=== PATIENT | female | born 1995 | race Caucasian/White ===

== ENCOUNTER 2021-09-09 11:51 | Emergency (ER) | payer MEDICAID, SELFPAY ==
[2021-09-09 12:06] VITALS: BP 113/78; PULSE 71; RESP 16; TEMP 36.8; O2SAT 96; BMI 28.3
--- NOTE | 2021-09-09 12:30 | ED_ITS ---
HPI - General Adult General: Chief complaint: General Medical Stated complaint: Sore throat, hard to swollow, cough Time Seen by Provider: 09/09/21 12:07 History of Present Illness: Patient presents with cough itchy throat and nasal drainage intermittently. Patient denies any fever. Patient denies any shortness of breath. It hurts to swallow but is not hard to swallow at times. Unable to get primary care due to not having [place] Medicaid insurance. Patient states she feels fine right now. Associated symptoms: Deny chest pain, dyspnea, headache(s), nausea, rash or vomiting Review of Systems 2 Const: Denies: fever(s), chills or body aches Eyes: Denies: eye discomfort ENMT: Reports: throat pain (Occasionally) and nasal discharge Card: Denies: chest pain Resp: Reports: non-productive cough; Denies: dyspnea GI: Denies: abdominal pain, nausea or vomiting Skin/Breast: Denies: rash Neuro: Denies: headache(s) Psych: Denies: depression or suicidal ideation Physical Exam Const: COMMON NORMALS: no acute distress, patient oriented x3 and alert HENMT: COMMON NORMALS: normocephalic, external ears normal and TM's normal bilaterally HEAD & SCALP: normocephalic EXTERNAL EAR: Yes external ears normal TYMPANIC MEMBRANE: TM's normal bilaterally THROAT: posterior oropha rynx normal and postnasal drainage; no peritonsillar mass and uvula not laterally displaced Eye: COMMON NORMALS: EOMs intact bilaterally Neck/C-Spine: COMMON NORMALS: no JVD Lymph: LYMPHATIC: no lymphadenopathy noted Resp: COMMON NORMALS: normal respiratory effort, No use of accessory muscles and clear to auscultation bilaterally AUSCULTATION: clear to auscultation bilaterally Cardio: COMMON NORMALS: no JVD GI: INSPECTION: Yes normal to inspection Extremity: COMMON NORMALS: normal to inspection and full ROM Neuro: COMMON NORMALS: patient oriented x3 SENSORIUM/ORIENTATION: Yes alert Psych: COMMON NORMALS: mental status grossly normal Skin: COMMON NORMALS: no rashes or lesions noted GENERAL SKIN EXAM: no rashes or lesions noted Course Vital Signs: Vital signs: Vital Signs Temperature 98.3 F 09/09/21 12:06 Pulse Rate 71 09/09/21 12:06 Respiratory Rate 16 09/09/21 12:06 Blood Pressure 113/78 03/24/22 12:06 Pulse Oximetry 96 09/09/21 12:06 MDM - General Adult Medical Decision Making Patient with upper respiratory infection. Discharge Plan Discharge Patient Disposition: Home Clinical Impression: URI (upper respiratory infection) Condition: Stable Prescriptions: New phenylephrine-dextromethorphan 2.5-5 mg/5 mL liquid 10 ml PO Q4H Qty: 473 0RF Discharge Orders: Discharge ED (Routine); Ordered 09/09/21 Ordered By: Marcus Chirinos Referrals: Nicolás Momin MD [Primary Care Provider] - Discharge Diet: Usual diet Discharge Activity: Increase activity as tolerated Patient Instructions: Upper Respiratory Infection (ED) Activity Restrictions/Additional Instructions: Follow-up with medical provider as directed. Take medications as prescribed. Return to the ER or your medical provider if condition worsens. Please read and understand discharge instructions. If any questions ask please. Coding Level of Care Code ED [employer] for Gio Martinez
== END 2021-09-09 12:42 | disposition home or self-care (01) ==
PROVIDERS: Emergency Provider Nurse Practitioner Family; PCP Family Medicine
DX: J06.9 Acute upper respiratory infection, unspecified (principal)
CPT/HCPCS: 99281